=== PATIENT | male | born 1990 | race Two or more races ===

== ENCOUNTER 2025-02-04 20:20 | Emergency (ER) | payer BC, MEDICAID, SELFPAY ==
[2025-02-04 20:21] VITALS: BMI 30.9
--- NOTE | 2025-02-04 20:34 | XR_ITS ---
Examination: Fingers, right hand second digit 3 views Technique: AP, oblique, lateral views right hand second digit. Exam date and time: February 04, 20252035 hours INDICATIONS: Injury to the hand today with second digit pain. FINDINGS: Soft tissue defect second digit distally No acute fracture No dislocation Old deformity fifth metacarpal IMPRESSION: No acute fracture
[2025-02-04 21:42] VITALS: BP 128/72; PULSE 80; RESP 18; TEMP 36.9; O2SAT 100
--- NOTE | 2025-02-04 21:48 | EDNOTE_ITS ---
Upper Extremity Injury RME/HPI General Chief Complaint: Hand/Wrist Problems Stated Complaint: R index finger injury Time Seen by Provider: 02/04/25 21:13 Arrival date/time: 02/04/25 20:20 RME / HPI RME / HPI narrative: 34-year-old male presents to the ED with a complaint of right index finger crush injury with laceration. He states he was remodeling a bathroom and had a casting or concrete tub that he was attempting to move. He had a tool underneath his finger when the tub fell and landed on his index finger catching it between the tool and the tub. His last tetanus is unknown. Related Data Previous Rx's ?Medication ?Instructions ?Recorded cephalexin 500 mg tablet 500 mg PO BID infection prev ention 02/05/25 #10 tabs Allergies Allergy/AdvReac Type Severity Reaction Status Date / Time NKA* Allergy Uncoded 02/04/25 20:25 Course Course Course Narrative: wOUND CLOSURE WITH #5 4.0 [place] SUTURES WITH GOOD WOUND EDGE APPROXIMATION. TOLERATED PROCEDURE WELL. Quality Measures none Orders Category Date Time Status Miscellaneous Nursing Order NOW Care 02/04/25 21:50 Active TDap [Obtain Tdap Consent] X1 Care 02/04/25 21:50 Active [place] Lamp to Bedside X1 Care 02/04/25 22:44 Active XR finger RT min 2V Stat Exams 02/04/25 20:34 Completed Fluorescein Sodium [[id number]] Med 02/04/25 22:44 Discontinued 1 mg BOTH EYES X1 ONE Lidocaine 1% 20 ml [Xylocaine 1% 20 ML] Med 02/04/25 21:50 Discontinued 10 ml INFL X1 ONE Proparacaine Op Lucinda 0.5% [Alcaine Op Lucinda 0.5%] Med 02/04/25 22:44 Discontinued See Dose Instructions BOTH EYES X1 ONE TET,DIP/PERT AC (Adult)-Tdap [Boostrix Adult (Tdap) Med 02/04/25 21:50 Discontinued Vacc] 0.5 ml IMI .ONCE ONE Vital Signs Vital signs: Vital Signs Temperature 98.5 F 02/04/25 21:42 Pulse Rate 80 02/04/25 21:42 Respiratory Rate 18 02/04/25 21:42 Blood Pressure 128/72 02/04/25 21:42 Pulse Oximetry (%) 100 02/04/25 21:42 Oxygen Delivery Method Room Air 02/04/25 21:42 Extremity Injury Medications / Prescriptions Medication administrations:: Medication Administration History Discontinued Medications Diphtheria/Tetanus/Acell Pertussis (Diphth,Pertuss(Acell),Tet Vac 0.5 Ml Syr- Adult) 0.5 ml IMi .ONCE ONE Stop: 02/04/25 21:51 Last Admin: 02/04/25 22:28 Dose: 0.5 ml Documented By: LISA Fluorescein Sodium (Fluorescein Sod 1 Mg Strp) 1 mg BOTH EYES X1 ONE Stop: 02/04/25 22:45 Last Admin: 02/04/25 23:01 Dose: 1 mg Documented By: LISA Lidocaine HCl (Lidocaine Hcl 1% 20 Ml Vial) 10 ml INFL X1 ONE Stop: 02/04/25 21:51 Last Admin: 02/04/25 22:27 Dose: 10 ml Documented By: LISA Proparacaine HCl (Proparacaine Op Lucinda 0.5% 15 Ml Btl) 0 drop BOTH EYES X1 ONE Stop: 02/04/25 22:45 Last Admin: 02/04/25 23:01 Dose: 1 drop Documented By: LISA Discharge Plan Plan Patient Disposition: HOME (Self Care) Discharge Disposition comment: Stable and Improved Prescriptions/Referrals Prescriptions/Med Rec: New cephalexin 500 mg tablet 500 mg PO BID Qty: 10 0RF Referrals: Devan Berumen MD [Primary Care Provider] - In 1 week Problem List Clinical Impression: Finger laceration, Crush injury, Foreign body sensation, right eye Patient/Caregiver Discharge Instructions Education Materials: ED Laceration: All Closures Additional Instructions: Follow-up with your primary care physician in 24 to 48 hours. Return to the ED for any new or worsening symptoms. Print Language: Moroccan Stand Alone Forms: [employer] Info., Patient Portal Info Letter GRACIELA/HERVE Supervising Physician GRACIELA/HERVE Supervising Physician: Dr. Metzger
[2025-02-04] MEDS: LIDOCAINE HCL 1% 20 ML VIAL 10 ML INFL (22:27)
[2025-02-04] MEDS: DIPHTH,PERTUSS(ACELL),TET VAC 0.5 ML SYR- ADULT IMi (22:28)
[2025-02-04] MEDS: FLUORESCEIN SOD 1 MG STRP BOTH EYES (23:01)
[2025-02-04] MEDS: PROPARACAINE OP SOL 0.5% 15 ML BTL BOTH EYES (23:01)
== END 2025-02-05 00:31 | disposition home or self-care (01) ==
PROVIDERS: Emergency Provider Emergency Medicine; PCP Family Medicine
DX: S61.210A Laceration without foreign body of right index finger without damage to nail, initial encounter (principal); S67.190A Crushing injury of right index finger, initial encounter; W23.0XXA Caught, crushed, jammed, or pinched between moving objects, initial encounter; Z23 Encounter for immunization; H57.8A1 Foreign body sensation, right eye
CPT/HCPCS: 12001; 73140; 90471; 90715; 99283; J3490